=== PATIENT | female | born 1955 | race Caucasian/White ===

== ENCOUNTER → 2016-10-18 | Outpatient (CLI) | payer OTHER ==
--- NOTE | 2016-10-28 10:25 | MM ---
Reason for exam: screening (asymptomatic). Last mammogram was performed 6 years and 7 months ago. History: Patient is postmenopausal. Physical Findings: A clinical breast exam by your physician is recommended on an annual basis and results should be correlated with mammographic findings. MG Screening Mammo w CAD Bilateral CC and MLO view(s) were taken. Prior study comparison: June 30, 2015, mammogram, performed at [facility]. January 22, 2012, mammogram, performed at [facility]. There are scattered fibroglandular densities. No suspicious calcifications are seen. New nodule in the inner upper right breast. ASSESSMENT: Incomplete: need additional imaging evaluation, BI-RAD 0 RECOMMENDATION: Special view mammogram and ultrasound of the right breast. [facility] will attempt to contact patient to return for supplemental views and ultrasound.
== END | disposition home or self-care (01) ==
LOC: RADMAMWWP 14:23
PROVIDERS: ATTEND Family Medicine
DX: Z12.31 Encounter for screening mammogram for malignant neoplasm of breast (principal)

== ENCOUNTER → 2016-10-30 | Outpatient (CLI) | payer OTHER ==
--- NOTE | 2016-10-30 09:19 | USB ---
Reason for exam: additional evaluation requested from abnormal screening. History: Patient is postmenopausal. Physical Findings: Nurse Summary: right brast palpable at 1 o'clock, 1.5 x 1.5cm, non-movable, non-tender (nurse ts). US Breast Workup RT Right breast ultrasound including all four quadrants, the retroareolar region and axilla demonstrates 1.18 x 1.23 x 1.13cm irregular solid lesion at 1:30, suspicious, and correlates with the palpable area. No axillary lymphadenopathy or additional breast lesions seen. These results were verbally communicated with the patient and result sheet given to the patient on 10/30/16. ASSESSMENT: Highly suggestive of malignancy, BI-RAD 5 RECOMMENDATION: Surgical consultation and ultrasound core biopsy of the right breast. Called with mammographic findings and has scheduled an appointment for the patient for 11/12/16 at 9:[address] Daniels. PRELIMINARY REPORT CALLED AND FAXED TO DR. DANIELS ON 10/30/16 AT 300/TP.
== END | disposition home or self-care (01) ==
LOC: RADMAMWWP 06:59
PROVIDERS: ATTEND Family Medicine
DX: R92.8 Other abnormal and inconclusive findings on diagnostic imaging of breast (principal)

== ENCOUNTER 2017-07-20 02:08 | Observation (INO) | payer BC, OTHER ==
[2017-07-20] MEDS ORDERED: ASPIRIN 81 MG PO STA (02:40)
[2017-07-20] MEDS ORDERED: NITROGLYCERIN OINT 1 INCH/GM PACKET TOPICAL STA (02:40)
--- NOTE | 2017-07-20 02:43 | ED ---
General Adult HPI - General Chief complaint: Chest Pain Stated complaint: Chest Pain Time Seen by Provider: 07/20/17 02:20 Source: patient, RN notes reviewed Mode of arrival: wheelchair Limitations: no limitations - History of Present Illness Initial comments: Patient is a pleasant 62-year-old female presenting to the emergency Department with chest discomfort. Onset of symptoms was around 5 PM yesterday. Discomfort remains and is somewhat worse. Discomfort did feel like indigestion however now feels more like tightness. Discomfort is upper chest and does radiate to the neck. Patient did try some baking soda without improvement of symptoms. Symptoms do worsen somewhat with deep inspiration and position changes. No history of similar symptoms previously. No dyspnea, nausea, or diaphoresis. Patient does have a history of breast cancer with mastectomy and recently finished radiation. Patient also recently finished chemotherapy. Discomfort is currently rated 3/10. - Related Data Allergies Allergy/AdvReac Type Severity Reaction Status Date / Time levofloxacin [From Levaquin] Allergy Unknown Verified 07/20/17 02:19 Review of Systems ROS Statement: Those systems with pertinent positive or pertinent negative responses have been documented in the HPI. ROS Other: All systems not noted in ROS Statement are negative. Constitutional: Denies: fever Eyes: Denies: eye pain ENT: Denies: ear pain Respiratory: Denies: cough, dyspnea Cardiovascular: Reports: chest pain Endocrine: Denies: fatigue Gastrointestinal: Denies: abdominal pain Genitourinary: Denies: dysuria Musculoskeletal: Denies: back pain Skin: Denies: rash Neurological: Denies: weakness Past Medical History Past Medical History: Hyperlipidemia Additional Past Medical History / Comment(s): breast cancer. History of Any Multi-Drug Resistant Organisms: None Reported Additional Past Surgical History / Comment(s): bilateral mastectomy. right trigger finger. bunion. bladder sling. Past Psychological History: No Psychological Hx Reported Smoking Status: Former smoker Past Alcohol Use History: Occasional Past Drug Use History: None Reported General Exam Limitations: no limitations General appearance: alert, in no apparent distress Head exam: Present: atraumatic Eye exam: Present: normal appearance, PERRL ENT exam: Present: normal oropharynx Neck exam: Present: normal inspection Respiratory exam: Present: normal lung sounds bilaterally Cardiovascular Exam: Present: regular rate, normal rhythm Expanded Peripheral pulses: 2+: Radial (R), Radial (L), Dorsalis Pedis (R), Dorsalis Pedis (L) GI/Abdominal exam: Present: soft. Absent: tenderness Extremities exam: Present: normal inspection. Absent: pedal edema, calf tenderness Neurological exam: Present: alert Psychiatric exam: Present: normal affect, normal mood Skin exam: Present: normal color Course Vital Signs 07/20/17 07/20/17 02:13 04:41 Pulse Rate 112 H 103 H Respiratory 16 18 Rate Blood Pressure 146/70 138/62 O2 Sat by Pulse 94 L 97 Oximetry EKG Findings - EKG Comments: EKG Findings:: Normal sinus rhythm 100. ND 136. QRS 90. QT 344. QTC 443. Normal axis. Normal QRS. Lateral T wave inversion. Medical Decision Making - Medical Decision Making Patient reexamined and resting comfortably in bed. Case discussed with practitioner Niranjan, who will admit for Dr. Hammer, covering for Dr. Flower - Lab Data Result diagrams: 07/20/17 04:46 07/20/17 03:10 Lab Results 07/20/17 07/20/17 07/20/17 Range/Units 03:10 03:10 03:10 WBC (3.8-10.6) k/uL RBC (3.80-5.40) m/uL Hgb (11.4-16.0) gm/dL Hct (34.0-46.0) % MCV (80.0-100.0) fL MCH (25.0-35.0) pg MCHC (31.0-37.0) g/dL RDW (11.5-15.5) % Plt Count (150-450) k/uL Neutrophils % % Lymphocytes % % Monocytes % % Eosinophils % % Basophils % % Neutrophils # (1.3-7.7) k/uL Lymphocytes # (1.0-4.8) k/uL Monocytes # (0-1.0) k/uL Eosinophils # (0-0.7) k/uL Basophils # (0-0.2) k/uL Macrocytosis PT 10.7 (9.0-12.0) sec INR 1.1 (<1.2) APTT 20.9 L (22.0-30.0) sec D-Dimer 0.73 H (<0.60) mg/L FEU Sodium 138 (137-145) mmol/L Potassium 4.9 (3.5-5.1) mmol/L Chloride 101 (98-107) mmol/L Carbon Dioxide 24 (22-30) mmol/L Anion Gap 13 mmol/L BUN 10 (7-17) mg/dL Creatinine 0.69 (0.52-1.04) mg/dL Est GFR (MDRD) Af Amer >60 (>60 ml/min/1.73 sqM) Est GFR (MDRD) Non-Af >60 (>60 ml/min/1.73 sqM) Glucose 83 (74-99) mg/dL Calcium 10.0 (8.4-10.2) mg/dL Magnesium 1.9 (1.6-2.3) mg/dL Total Bilirubin 1.1 (0.2-1.3) mg/dL AST 43 H (14-36) U/L ALT 49 (9-52) U/L Alkaline Phosphatase 55 (38-126) U/L Total Creatine Kinase 55 (30-135) U/L CK-MB (CK-2) 0.4 (0.0-2.4) ng/mL CK-MB (CK-2) Rel Index 0.7 Troponin I <0.012 (0.000-0.034) ng/mL Total Protein 7.7 (6.3-8.2) g/dL Albumin 4.4 (3.5-5.0) g/dL 07/20/17 Range/Units 04:46 WBC 6.6 (3.8-10.6) k/uL RBC 4.07 (3.80-5.40) m/uL Hgb 13.7 (11.4-16.0) gm/dL Hct 41.8 (34.0-46.0) % MCV 102.8 H (80.0-100.0) fL MCH 33.7 (25.0-35.0) pg MCHC 32.8 (31.0-37.0) g/dL RDW 14.2 (11.5-15.5) % Plt Count 183 (150-450) k/uL Neutrophils % 84 % Lymphocytes % 10 % Monocytes % 4 % Eosinophils % 1 % Basophils % 0 % Neutrophils # 5.6 (1.3-7.7) k/uL Lymphocytes # 0.7 L (1.0-4.8) k/uL Monocytes # 0.2 (0-1.0) k/uL Eosinophils # 0.1 (0-0.7) k/uL Basophils # 0.0 (0-0.2) k/uL Macrocytosis Slight PT (9.0-12.0) sec INR (<1.2) APTT (22.0-30.0) sec D-Dimer (<0.60) mg/L FEU Sodium (137-145) mmol/L Potassium (3.5-5.1) mmol/L Chloride (98-107) mmol/L Carbon Dioxide (22-30) mmol/L Anion Gap mmol/L BUN (7-17) mg/dL Creatinine (0.52-1.04) mg/dL Est GFR (MDRD) Af Amer (>60 ml/min/1.73 sqM) Est GFR (MDRD) Non-Af (>60 ml/min/1.73 sqM) Glucose (74-99) mg/dL Calcium (8.4-10.2) mg/dL Magnesium (1.6-2.3) mg/dL Total Bilirubin (0.2-1.3) mg/dL AST (14-36) U/L ALT (9-52) U/L Alkaline Phosphatase (38-126) U/L Total Creatine Kinase (30-135) U/L CK-MB (CK-2) (0.0-2.4) ng/mL CK-MB (CK-2) Rel Index Troponin I (0.000-0.034) ng/mL Total Protein (6.3-8.2) g/dL Albumin (3.5-5.0) g/dL - Radiology Data Radiology results: report reviewed (Computed tomography scan the chest shows suboptimal opacification, no large central pulmonary embolism. Right adrenal lesion. Lung nodule. Liver lesions.), image reviewed (Chest x-ray shows questionable retrocardiac opacity.) Disposition Clinical Impression: Chest pain Disposition: ADMITTED IP TO THIS [facility] Referrals: Ricardo Licea DO [Primary Care Provider] - 1-2 days Decision Time: 06:42
[2017-07-20 03:37] LABS: ALT 49 U/L (9-52); AST 43 U/L (14-36); Alkaline Phosphatase 55 U/L (38-126); Anion Gap 13 mmol/L; Blood Urea Nitrogen 10 mg/dL (7-17); Carbon Dioxide 24 mmol/L (22-30); Chloride 101 mmol/L (98-107); Glucose 83 mg/dL (74-99); Magnesium 1.9 mg/dL (1.6-2.3); Non-African American GFR(MDRD) >60 (>60 ml/min/1.73 sqM); Potassium 4.9 mmol/L (3.5-5.1); Sodium 138 mmol/L (137-145); Total Bilirubin 1.1 mg/dL (0.2-1.3); Total Protein 7.7 g/dL (6.3-8.2)
--- NOTE | 2017-07-20 03:48 | XR ---
EXAM: XR Chest, 1 View CLINICAL HISTORY: Chest pain. Shortness of breath and weakness. History of breast cancer. Currently receiving chemotherapy and radiation. TECHNIQUE: Frontal view of the chest. COMPARISON: No relevant prior studies available. FINDINGS: Lungs: Suspected mild retrocardiac opacity, possibly atelectasis although mild infiltrate is not excluded. Lungs otherwise clear. No pulmonary edema. Pleural space: No pleural effusion or pneumothorax. Heart: Normal cardiac silhouette size. Mediastinum: Unremarkable. No mediastinal widening. Bones/joints: Osseous structures appear intact. Tubes, lines and devices: Left chest wall Port-A-Cath with tip in the superior vena cava. Other: Surgical clip projecting in the right axilla. IMPRESSION: 1. Suspected mild retrocardiac opacity, possibly atelectasis although mild infiltrate is not excluded. Recommend clinical correlation. Lungs otherwise clear. 2. Left chest wall Port-A-Cath with tip in the SVC.
[2017-07-20 03:49] LABS: Creatine Kinase 55 U/L (30-135)
[2017-07-20 03:51] LABS: INR 1.1 (<1.2); Prothrombin Time 10.7 sec (9.0-12.0)
[2017-07-20 03:59] LABS: Partial Thromboplastin Time 20.9 sec (22.0-30.0)
[2017-07-20 04:02] LABS: Creatine Kinase MB 0.4 ng/mL (0.0-2.4); Troponin I <0.012 ng/mL (0.000-0.034)
[2017-07-20] MEDS ORDERED: RX INFO: IV CONTRAST WAS GIVEN 1 EACH MISC MISCELLANE PRN (04:53)
[2017-07-20 05:03] LABS: Basophils % (A) 0 %; CH 33.6; CHCM 32.8; Eosinophils # (A) 0.1 k/uL (0-0.7); Eosinophils % (A) 1 %; HCT 41.8 % (34.0-46.0); HDW 2.45; HGB 13.7 gm/dL (11.4-16.0); Luc # (Auto) 0.04; Luc % (Auto) 1; Lymphocytes # (A) 0.7 k/uL (1.0-4.8); Lymphocytes % (A) 10 %; MCH 33.7 pg (25.0-35.0); MCHC 32.8 g/dL (31.0-37.0); MCV 102.8 fL (80.0-100.0); Macrocytosis Slight; Mean Platelet Volume 7.1; Monocytes # (A) 0.2 k/uL (0-1.0); Monocytes % (A) 4 %; Neutrophils # (A) 5.6 k/uL (1.3-7.7); Neutrophils % (A) 84 %; RBC 4.07 m/uL (3.80-5.40); RDW 14.2 % (11.5-15.5); WBC 6.6 k/uL (3.8-10.6); WBC (Perox) 6.88
--- NOTE | 2017-07-20 06:32 | CT ---
EXAM: CT Angiography Chest With Intravenous Contrast CLINICAL HISTORY: Shortness of breath and weakness with elevated d-dimer. History of breast cancer. Currently receiving chemotherapy and radiation. TECHNIQUE: Axial computed tomographic angiography images of the chest with intravenous contrast using pulmonary embolism protocol. MIP reconstructed images were created and reviewed. CTDI is 3.00, 155.90, 9. 70 mGy and DLP is 382.70 mGy-cm. This CT exam was performed using one or more of the following dose reduction techniques: automated exposure control, adjustment of the mA and/or kV according to patient size, and/or use of iterative reconstruction technique. CONTRAST: 100 mL of Omnipaque 350 administered intravenously. COMPARISON: No relevant prior studies available. FINDINGS: Pulmonary arteries: Suboptimal opacification of the pulmonary arteries significantly limits evaluation for pulmonary emboli. No obvious large central pulmonary embolism although examination is essentially nondiagnostic. Aorta: No acute findings. No thoracic aortic aneurysm. Lungs: Irregular 9 mm nodular density in the right upper lobe. Mild dependent atelectasis. Lungs otherwise clear. Pleural space: No pleural effusion. No pneumothorax. Heart: Unremarkable. No cardiomegaly. Minimal pericardial fluid or thickening. Bones/joints: Osseous degenerative changes. No acute fracture. No dislocation. Soft tissues: Small fat-containing Bochdalek hernia. Surgical clip in the right axilla. Evidence of mastectomies. Lymph nodes: Mildly enlarged left axillary lymph node measuring 1.2 cm in short axis. No enlarged mediastinal or hilar lymph nodes. Visualized upper abdomen: Low-attenuation 2.6 cm right adrenal lesion. Nonspecific low-attenuation liver lesion measuring 1.7 cm and additional smaller lesion measuring 0.7 cm. Other: Left chest wall Port-A-Cath with tip in the superior vena cava. IMPRESSION: 1. Suboptimal opacification of the pulmonary arteries significantly limits evaluation for pulmonary emboli. No obvious large central pulmonary embolism although examination is essentially nondiagnostic. 2. Low-attenuation 2.6 cm right adrenal lesion. Findings are suggestive of adrenal adenoma. 3. Irregular 9 mm nodular density in the right upper lobe. Finding is nonspecific and may be infectious, inflammatory or neoplastic/metastatic. Recommend further evaluation and/or short interval follow-up. Comparison with prior CT if available would be helpful. 4. Left chest wall Port-A-Cath with tip in the superior vena cava. 5. Evidence of mastectomies with surgical clip in the right axilla and enlarged lymph node in the left axilla measuring approximately 1.2 cm in short axis. 6. Two hypodense liver lesions, largest measuring 1.7 cm. Findings may represent cysts although metastatic disease cannot be excluded. Comparison with prior imaging would be helpful. If no prior imaging is available, further evaluation with liver protocol CT or MRI can be considered.
[2017-07-20] MEDS ORDERED: NITROGLYCERIN SL TABS 0.4 MG TAB SUBLINGUAL PRN (06:44)
--- NOTE | 2017-07-20 09:47 | NM ---
EXAMINATION TYPE: NM pul vent and perfuse DATE OF EXAM: 07/20/2017 COMPARISON: Previous CTA of the chest of earlier today. HISTORY: Elevated d-dimer TECHNIQUE: Utilizing inhalation of 74 mCi Tc 99m DTPA aerosol and intravenous injection of 5.4 mCi o f Tc 99m MAA, ventilation and perfusion images are acquired post injection in multiple projections. FINDINGS: There are no VQ mismatches. IMPRESSION: THIS EXAMINATION IS NEGATIVE FOR PULMONARY EMBOLUS.
--- NOTE | 2017-07-20 13:30 | CONS ---
CONSULTATION This is a 62-year-old lady who sees Dr. Licea in the outpatient setting. She came into the hospital with complaints of discomfort in her chest. She underwent bilateral mastectomies sometime in spring of this year. She also had some chemotherapy and there is a question of some liver METS and this is being followed by her oncologist in the [place] area. However around 5:00 pm yesterday she started having some discomfort, which she initially described as a sensation of indigestion and tightness. Then it seemed to persist and there was some radiation to the neck. She took some baking soda without improvement and came into the hospital. Initial troponin is normal. She is resting comfortably without recurrence. There is also some tenderness in the area over the left anterior chest. She has no symptoms at the time of my evaluation. PAST MEDICAL HISTORY: 1. Hypercholesterolemia. 2. Breast cancer status post bilateral mastectomy and also had chemotherapy. There are some 2 lesions in her liver, which are being followed by CT scans. MEDICATIONS: None. ALLERGIES: SHE IS ALLERGIC TO LEVAQUIN. PHYSICAL EXAMINATION: Blood pressure is 118/70, pulse rate is 70 per minute, regular. HEENT: Unremarkable. Fundus was not examined by me. Neck is supple. There is no JVD. I do not hear a carotid bruit. Heart exam reveals S1, S2 heard normally. I do not hear any significant rub, murmur or gallop. Lungs are clear. Abdomen is soft. There is some tenderness over the anterior chest wall. Lower extremities revealed palpable pulses. No edema. Central nervous system is normal. EKG revealed a sinus mechanism, nonspecific ST-T changes. LAB DATA: Revealed that initial troponin is normal. Repeat troponin was not performed. D-dimer was elevated. CT angio was inconclusive and V/Q scan revealed low probability for PE. IMPRESSION: 1. Atypical chest pain. 2. History of breast cancer with some tenderness over the left anterior chest. She had bilateral mastectomy and chemo. 3. History of hyperlipidemia. RECOMMENDATIONS: From a cardiac standpoint, I am suggesting that we will obtain 1 more EKG and another troponin and if this is normal, we do not have to do any other workup at this time. There is also a question of some 9 mm nodule in the liver and this is being looked at by the oncologist as well. Her IV is in the foot instead of the arms because of question of some lymphedema, but I believe blood draw can safely be performed to look for additional troponin level. I discussed my thoughts in detail with the patient. Thank you very much for the consult. JENISE / THEO: [id number] /
[2017-07-20 13:40] LABS: Creatine Kinase 42 U/L (30-135)
[2017-07-20 13:53] LABS: Creatine Kinase MB <0.2 ng/mL (0.0-2.4); Troponin I <0.012 ng/mL (0.000-0.034)
[2017-07-20] MEDS: NITROGLYCERIN OINT 1 INCH/GM PACKET TOPICAL SCH ×2 (14:48→18:02)
--- NOTE | 2017-07-20 15:00 | HP ---
HISTORY AND PHYSICAL HISTORY AND PHYSICAL/DISCHARGE SUMMARY: This is a combination history and physical and discharge summary. CHIEF COMPLAINT: Chest pain. HISTORY OF PRESENT ILLNESS: This 62-year-old woman with a past medical history of multiple medical problems including hyperlipidemia, history of breast cancer, being followed by Dr. Licea in the outpatient setting, complaining of chest pain which is felt in the anterior part of the chest. The pain is sharp in character. Increased in the respiration and movement also. The patient came to [facility]. Multiple evaluations were negative. D- dimer 0.073. Myocardial infarction was ruled out and pulmonary perfusion imaging was negative also. The EKG was done which showed ST-T changes. The patient apparently had a stress test about previously. Results not available. Cardiology evaluating the patient. Dr. Shawna Kaur has seen the patient and as per his recommendations, the patient will be discharged if troponin is normal. The patient also had a 9 mm nodule in the liver which is to be followed up in the outpatient setting. There is no history of fever, rigors. No headache, loss of consciousness or seizures at this time. PAST MEDICAL HISTORY: History of hyperlipidemia, history of breast cancer, mastectomy. MEDICATIONS: Prior to admission include home medications are none. ALLERGIES: LEVAQUIN. FAMILY HISTORY: Family history of CAD, CVA, TIA, diabetes, hypertension, hyperlipidemia. SOCIAL HISTORY: Previous history of smoking. No history of current smoking. Alcohol intake. REVIEW OF SYSTEMS: ENT: No diminished vision or diminished hearing. Cardiovascular System: As mentioned earlier. Respiratory: As mentioned earlier. Gastrointestinal: No nausea, vomiting. : No dysuria or hematuria. Central nervous system: No numbness, weakness. ALLERGY/IMMUNOLOGY: No asthma or hayfever. MUSCULOSKELETAL: As mentioned earlier. Hematology/Oncology: No history of anemia. Endocrine: No history of diabetes or hypothyroidism. Constitutional: As mentioned earlier. Dermatology: Negative. Rheumatology: Negative. Psychiatric: As mentioned earlier. PHYSICAL EXAM: Patient is alert, oriented x3. Pulse is 90, blood pressure 129/64, respiration 16, temperature 100 degrees, pulse ox 93% on room air. HEENT: Conjunctivae normal. Oral mucosa moist. Neck is no jugular venous distention. No carotid bruit. No lymph node enlargement. Cardiovascular System: S1, S2 muffled. Respiration: Breath sounds diminished in the bases. No rhonchi, no crackles. ABDOMEN: Soft, nontender. No mass palpable. Legs: No edema and no swelling. Nervous system: Higher functions as mentioned earlier. Moves all 4 limbs. No focal motor or sensory deficits. LYMPHATICS: No lymph nodes palpable in the neck, axillae or groin. SKIN: No ulcer, rash, bleeding. LABS: CT scan showed a mastectomies, 9 mm nodule in the right upper lobe, two hypodense liver lesions. The labs: D-dimer 0.73 and AST 43. ASSESSMENT: 1. Chest pain, myocardial infarction ruled out possible pleuritic. 2. ST-T changes on the EKG. 3. History of breast cancer. 4. Liver lesions and 9 mm nodule in the right upper lobe for followup. 5. History hyperlipidemia. 6. History of bilateral mastectomy. RECOMMENDATIONS AND DISCUSSION: This 62-year-old woman who presented with multiple complex medical issues, we will monitor the patient closely, continue the current medications, continue symptomatic management. Symptomatic treatment. Otherwise at this time I recommend the patient to be discharged and followed up in the outpatient setting per cardio recommendations. Cardiology cleared the patient for discharge and I would also recommend follow up closely with Cardiology for possible stress test. Otherwise, also recommend follow up with the hematology/oncology also. Further recommendations to follow. MMODL / IJN: [id number] / MTDChris
--- NOTE | 2017-07-20 16:48 | CONS ---
CONSULTATION DATE OF SERVICE: July 20, 2017. REASON FOR CONSULTATION: Breast cancer. CHIEF COMPLAINT: Chest pain. HISTORY OF PRESENT ILLNESS: Carolee is a very pleasant 62 years old lady who came into the emergency department yesterday complaining of upper chest pain and especially when she takes a deep breath, not radiating, and this pain has been constant since yesterday and she came into the emergency department. She had a CT scan of the chest to rule out pulmonary emboli. However, it was sub optimal to evaluate for pulmonary embolus but it did identify a 9 mm nodule in the in the right upper lobe of her lung and there was also a 1.2 cm possible left axillary node and in addition to that, there was a 2.6 cm right adrenal lesion which is nonspecific with the characteristic favoring a benign etiology and there was two hypodense lesions in the liver measuring largest 1.7 cm. There is no prior CT scan at this facility available to compare. She did also undergo a V/Q scan which was negative for pulmonary emboli and she ended up being admitted for cardiac evaluation and rule out cardiac etiology. 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 She had a biopsy of both breasts and according to the patient in the left breast it was found that it was not involving the lymph node and it was estrogen positive, progesterone negative, and HER2 negative. However, the biopsy of the right breast was estrogen positive and HER2 initially was thought to be negative, but then subsequently it was confirmed to be positive for HER-2/azam. The patient subsequently went to [facility] and she did undergo bilateral mastectomies and she had a right axillary node dissection and she had left sentinel node biopsy. There was no kari involvement on the left. However, there was kari involvement in the right. Initially she was treated with DC regimen. She had 2 cycles but she went for a third opinion at [facility] and repeat HER2 testing were consistent that she might have HER2 positive disease and felt to have heterogeneous malignancy in the right breast and after further discussion at the [facility] Center in [place], it was decided to add Herceptin containing regimen and she was started on TCHP regiment and was Taxotere, carboplatin, Herceptin, and Perjeta. She had a total of 4 cycles of that completed around the end of April and then subsequently she continued on Herceptin and Perjeta. Her Perjeta was held when she had right chest wall radiation, which was recently completed and she continued during the radiation with Herceptin only. Again, all her treatment that she was on was endocrine therapy was aromatase inhibitor recommended to her but she declined it. The patient apparently is aware of her liver lesion and her adrenal gland lesion they were previously investigated at [facility] in [place], [place] in [place] and in [place] and there were felt to be benign, but she is not aware of 9 mm new lung lesion. The patient at this point in time, continued to have some atypical chest pain in the upper chest, mostly when she takes a deep breath. Otherwise she feels fine and there is no headaches. No dysphagia, nausea, or vomiting. No melena. No hematochezia, hematuria, hemoptysis, hematemesis or epistaxis. PAST MEDICAL HISTORY: In addition to what is stated above in regard to her breast carcinoma, she has a history of hyperlipidemia. HOME MEDICATION: Her home medication is to take Tylenol as needed only. Her current medication include aspirin 325 mg daily. Nitro-Bid ointment 1 inch topical every 6 hours and Nitrostat as needed. ALLERGIES: SHE IS ALLERGIC TO LEVAQUIN. FAMILY HISTORY: For malignancy. Her mother had lung cancer. Otherwise negative. Of note, the patient did have genetic testing at the [facility] in [place] and accordingly that was negative. REVIEW OF SYSTEMS: As stated above in history of present illness, otherwise negative. PHYSICAL EXAMINATION: She is alert and oriented x3. She does not appear to be in acute distress. Well developed, well nourished. Her vital signs temperature a 100, respirations 16, pulse 90, blood pressure 129/64, pulse ox 93% on room air. HEENT: Normocephalic, atraumatic. There is no obvious scleral icterus. NECK: Supple. No jugular venous distention. Chest equal expansion bilaterally. LUNGS: Clear to auscultation and percussion. Heart is regular rhythm. ABDOMEN: Soft. No obvious organomegaly or masses. Bowel sounds present. Extremities reveal no edema. Skin no significant bruise, no petechia. Lymphatics no peripherally enlarged cervical, supraclavicular lymphadenopathy. MUSCULOSKELETAL: There is no percussion tenderness detected over spine. There is some tenderness to percussion in the upper sternum and the right sided ribs and upper ribs medially. Lymphatic system, no peripheral cervical, supraclavicular lymph node and there is no right axillary lymph node. There is a small lesion in the left axilla. However, the patient stated that she has had seroma after her surgery on the left side which has been drained multiple times. LABORATORY DATA: WBC of 6.6, hemoglobin 13.7, hematocrit 41.8, and platelets are 183. Sodium 138, potassium 4.9, chloride 101, CO2 is 24, BUN 10, creatinine 0.69. AST is 43, ALT is 49, alkaline phosphatase 55. IMPRESSION: 1. Atypical chest pain. It could be related to recent radiation therapy. 2. History of bilateral breast carcinoma with diagnostic and therapeutic circumstances stated above. 3. Recent CT scans revealing liver lesion, probably cysts. No prior CT scans are available to compare. However, the patient stated that she is aware of those and also the same thing for the right adrenal gland lesion. 4. In regard to the left axillary node mentioned on the CT scan. This is felt to represent seroma and the patient is aware of it and was drained before in the past. In regard to the 9 mm right upper lobe lung nodules, this is not specific and I am not sure if it was present on previous CT scan. As stated, the patient's liver lesions were previously evaluated and felt to be represent benign finding according to the patient when they were evaluated at both the [facility] and [facility] in [place]. RECOMMENDATION: 1. No further workup from oncology standpoint. 2. I did ask the patient to take a copy of the CD of her recent CT scan when she goes back to the [facility] for comparison especially in regard to the right upper lobe lung nodule and also I asked that if her rib pain and atypical chest pain persists, may consider performing a bone scan. 3. Otherwise, she will continue with her treatment as recommended to her. From oncology standpoint, the patient could be discharged home and she will follow up with her treating oncologist at the [facility] in [place]. The above was discussed in detail with the patient. I have answered all her questions to her satisfaction. Thank you very much for asking me to participate in the care of this nice lady. MMODL / IJN: [id number] /
[2017-07-21] MEDS: NITROGLYCERIN OINT 1 INCH/GM PACKET TOPICAL SCH ×3 (03:07→12:01)
[2017-07-21 03:35] LABS: Cholesterol 315 mg/dL (<200); HDL Cholesterol 43 mg/dL (40-60)
[2017-07-21 05:32] VITALS: RESP 16
[2017-07-21] MEDS ORDERED: ASPIRIN 325 MG TAB PO SCH (09:00)
--- NOTE | 2017-07-21 15:02 | PN ---
PROGRESS NOTE Mrs Arana had atypical chest pain. Two sets of troponins are normal. EKG is unremarkable. She has breast cancer and cardiac-pantoja, no further intervention necessary. She can be discharged and she will follow up with her oncologist in the [place] area. Vital signs are stable, S1, S2 heard normally. Lungs are clear. Abdomen and lower extremity exam is unchanged. MMODL / IJN: [id number] /
[2017-07-21 16:06] VITALS: BP 136/74; PULSE 75; TEMP 98.4
--- NOTE | 2017-07-22 14:15 | P.DS ---
Providers Date of admission: 07/20/17 06:46 Expected date of discharge: 07/21/17 Attending physician: Quinn Sol Consults: 07/20/17 06:44 Consult Physician Urgent Consulting Provider: Devin Nobles Consult Reason/Comments: oncological care Do you want consulting provider notified?: Yes Consult Physician Urgent Consulting Provider: Cb Rodrigues Consult Reason/Comments: chest pain Do you want consulting provider notified?: Yes Primary care physician: Ricardo Licea Hospital Course: Final Diagnoses: 1. Chest pain, myocardial infarction ruled out, possible pleuritic 2. ST-T changes on EKG 3. Breast cancer, scheduled for next appointment tomorrow at [facility] in [facility]. 4. Liver lesions and 9 mm nodule in the right upper lobe for follow-up, patient to take CD copy of CT for comparison at follow-up visit with oncology 5. Hyperlipidemia 6. Bilateral mastectomy Hospital course: This is a 66-year-old female admitted with anterior chest pain , in a patient with history of breast cancer and multiple other medical issues. Multiple evaluations negative. D-dimer 0.073. Myocardial infarction ruled out, pulmonary perfusion imaging negative also. EKG showed ST-T changes. Patient apparently had previous stress test-results not available. Troponins negative. Evaluated by cardiology with recommendations to discharge. Evaluated by oncology. Patient is a 9 mm nodule of the liver to be further followed up outpatient. Prior to discharge, developed low-grade fever, workup initiated. Urine culture currently negative, preliminary blood cultures pending. Patient is asymptomatic, denies chills, no further fevers, no evidence of cellulitis or IV site infection. Discussed with patient will continue following cultures results, but feel fever is probably related to cancer. Patient is eager for discharge. It is in the patient's best interest to be discharged to facilitate her 6 AM flight in the a.m. to her [facility] oncology appointment. Patient is being discharged home in a stable condition with guarded prognosis, on empiric antibiotics. The impression and plan of care has been dictated as directed. : I performed a history and examination of this patient, discussed the same with the dictator. I agree with the dictator's note ,documented as a scribe. Any additional findings or plans will be noted. Patient Condition at Discharge: Stable Plan - Discharge Summary Discharge Rx Participant: Yes New Discharge Prescriptions: New Acetaminophen Tab [Tylenol Tab] 500 mg PO Q6H PRN #30 tablet PRN Reason: Pain Amoxic-Pot Clav 875-125Mg [Augmentin 875-125] 1 tab PO Q12HR #14 tablet Discharge Medication List Acetaminophen Tab [Tylenol Tab] 500 mg PO Q6H PRN #30 tablet 07/20/17 [Rx] Amoxic-Pot Clav 875-125Mg [Augmentin 875-125] 1 tab PO Q12HR #14 tablet [Rx] Follow up Appointment(s)/Referral(s): [facility] [place] [facility] [Other] - 07/22/17 (Keep scheduled appointment ) Mary Kaur MD [STAFF PHYSICIAN] - 1 Week (Please call office to schedule an appointment) Ricardo Licea DO [Primary Care Provider] - 3 Days (please call to make your appointment) Ambulatory/Diagnostic Orders: Complete Blood Count w/diff [LAB.AMB] Time Frame: 3 Days, Location: Determined By Patient Patient Instructions/Handouts: Chest Pain (DC) Activity/Diet/Wound Care/Special Instructions: Elevated LDL, no statin r/t mildly elevated AST, liver lesions please obtain copy/CD of CT for patient to take to the [facility] for comparison Pt may resume physical therapy as ordered per Kaitlyn Ureña NP diet cardiac stress test per cardio Discharge Disposition: HOME SELF-CARE
== END 2017-07-21 17:53 | disposition home or self-care (01) ==
LOC: EC 02:08 → 6SEL 06:46
PROVIDERS: ADMIT Hospitalist; ATTEND Hospitalist
DX: R07.89 Other chest pain (principal); C50.919 Malignant neoplasm of unspecified site of unspecified female breast; E78.5 Hyperlipidemia, unspecified; K76.89 Other specified diseases of liver; E27.9 Disorder of adrenal gland, unspecified; Z88.1 Allergy status to other antibiotic agents; Z90.13 Acquired absence of bilateral breasts and nipples; Z92.3 Personal history of irradiation; Z92.21 Personal history of antineoplastic chemotherapy; Z87.891 Personal history of nicotine dependence; Z82.49 Family history of ischemic heart disease and other diseases of the circulatory system; Z82.3 Family history of stroke; Z79.82 Long term (current) use of aspirin
CPT/HCPCS: 99285; 36415; 93005; 85379; 80061; 80053; 82550; 82553; 83735; 84484; 85025; 85610; 85730; 87040; 87086; 71020; 71275; 78582; G0378 ×3; A9540; A9567; Q9967

== ENCOUNTER → 2019-07-21 | Outpatient (CLI) | payer BC | END | disposition home or self-care (01) | LOC: RADMRIMAIN 12:03 | PROVIDERS: ATTEND Podiatrist Foot & Ankle Surgery | DX: Z53.9 Procedure and treatment not carried out, unspecified reason (principal) ==

== ENCOUNTER → 2021-05-08 | Outpatient (CLI) | payer MEDICARE, BC | END | disposition home or self-care (01) | LOC: LABWHC1 12:39 | PROVIDERS: ATTEND Anesthesiology | DX: Z20.822 Contact with and (suspected) exposure to COVID-19 (principal) | CPT/HCPCS: U0003; C9803 ==